=== PATIENT | female | born 1995 | race Caucasian/White ===

== ENCOUNTER 2022-09-02 10:05 | Emergency (ER) | payer SELFPAY ==
[~2022-09-02] VITALS: Ht 167.6 cm; Wt 87.0 kg
[2022-09-02] MEDS ORDERED: SODIUM CHLORIDE 0.9% 1,000 ML IV ONE (11:15)
[2022-09-02 11:32] LABS: BASOPHILS % (AUTO) 0.4 % (0.0-2.0); EOSINOPHILS % (AUTO) 2.5 % (1.0-6.0); HEMATOCRIT 33.8 % (36-46); HEMOGLOBIN 10.7 g/dL (12.0-16.0); LYMPHOCYTES # (AUTO) 1.1 K/uL (1.0-4.8); LYMPHOCYTES % (AUTO) 26.1 % (22.0-44.0); MEAN CORPUSCULAR HEMOGLOBIN 25.9 pg (26.0-34.0); MEAN CORPUSCULAR HGB CONC 31.8 G/dL (31.0-37.0); MEAN CORPUSCULAR VOLUME 81 fL (80-100); MONOCYTES # (AUTO) 0.3 K/uL (0.1-1.0); MONOCYTES % (AUTO) 5.9 % (2.0-9.0); NEUTROPHILS # (AUTO) 2.9 K/uL (1.8-7.7); NEUTROPHILS % (AUTO) 65.1 % (40.0-70.0); PLATELET COUNT (AUTO) 268 K/uL (150-450); RED BLOOD CELL COUNT(AUTO) 4.15 MIL/uL (4.00-5.20); RED CELL DISTRIBUTION WIDTH 17.4 % (11.5-14.5)
[2022-09-02 11:54] LABS: ANION GAP 7 mmol/L (8-16); CALCIUM, TOTAL 8.9 mg/dL (8.8-10.5); CARBON DIOXIDE 27 mmol/L (22-29); CHLORIDE 105 mmol/L (98-107); CREATININE 0.85 mg/dL (0.60-1.30); GLUCOSE,RANDOM 86 mg/dL (70-110); POTASSIUM 4.2 mmol/L (3.5-5.1); SODIUM SERUM 139 mmol/L (136-145); UREA NITROGEN, BLOOD 8 mg/dL (7-18)
[2022-09-02 12:03] LABS: GLOMERULAR FILTR. RATE CALC > 60 mL/min (>60)
[2022-09-02 12:05] LABS: ALANINE AMINOTRANSFERASE 25 U/L (12-78); ALBUMIN 3.2 g/dL (3.4-5.0); ALKALINE PHOSPHATASE 115 U/L (46-116); ASPARTATE AMINOTRANSFERASE 17 U/L (15-37); BILIRUBIN,TOTAL 0.6 mg/dL (0.1-1.0); TOTAL PROTEIN, SERUM 7.7 g/dL (6.4-8.2)
[2022-09-02 13:01] VITALS: BP 102/7
== END 2022-09-02 13:39 | disposition home or self-care (01) ==
LOC: EMS 10:10
DX: R42 Dizziness and giddiness (principal); E86.0 Dehydration
CPT/HCPCS: 99284; 96360; 80053; 84703; 85025; 36415; 93005; J7030